=== PATIENT | male | born 1960 | race Caucasian/White ===

== ENCOUNTER 2023-05-11 21:15 | Emergency (ER) | payer MEDICARE, OTHER ==
[2023-05-11 21:27] VITALS: TEMP 98.5
--- NOTE | 2023-05-11 22:26 | ED ---
Male Urogenital HPI - General Chief complaint: Urogenital Stated complaint: Catheter Malfunction Time Seen by Provider: 05/11/23 21:17 Source: patient, EMS Mode of arrival: EMS Limitations: language barrier, altered mental status - History of Present Illness Initial comments: This patient is a 63-year-old man sent from shelter to evaluate for hemat uria. He reportedly had a catheter placed which was not returning much urine but turned blood. On arrival here, the patient did have urge to urinate, before arriving in the room and reportedly was able to voluntarily past urine. When I review the patient, he is denying abdominal pain he states that he feels he doesn't to have a catheter. The patient however having fever. No back pain. MD Complaint: other -: hour(s) Location: penis Radiation: none Severity: mild Consistency: now resolved Improves with: none Worsens with: none Reports: blood in urine - Related Data Allergies Allergy/AdvReac Type Severity Reaction Status Date / Time No Known Allergies Allergy Verified 05/11/23 21:26 Review of Systems ROS Statement: Those systems with pertinent positive or pertinent negative responses have been documented in the HPI. ROS Other: All systems not noted in ROS Statement are negative. Constitutional: Denies: fever Respiratory: Denies: dyspnea Cardiovascular: Denies: chest pain Gastrointestinal: Denies: abdominal pain Genitourinary: Reports: hematuria. Denies: urgency, dysuria, testicular pain Musculoskeletal: Denies: back pain Past Medical History Past Medical History: CVA/TIA, Dementia, Diabetes Mellitus, Hyperlipidemia, Hypertension, Renal Disease Additional Past Surgical History / Comment(s): renal failure Past Psychological History: Anxiety, Depression Past Alcohol Use History: Abuse General Exam Limitations: language barrier, altered mental status General appearance: alert, in no apparent distress Head exam: Present: atraumatic, normocephalic Eye exam: Present: normal appearance Respiratory exam: Present: normal lung sounds bilaterally. Absent: respiratory distress, wheezes, rales, rhonchi, stridor Cardiovascular Exam: Present: regular rate, normal rhythm, normal heart sounds. Absent: systolic murmur, diastolic murmur, rubs, gallop GI/Abdominal exam: Present: soft. Absent: distended, tenderness, guarding, rebound, mass Skin exam: Present: warm, dry, intact, normal color. Absent: rash Course Vital Signs 05/11/23 05/11/23 05/11/23 21:17 21:26 21:49 Temperature 98.5 F Pulse Rate 79 65 Pulse Rate [ 80 Interlocking Pavement Installer ] Respiratory 20 16 Rate Blood Pressure 166/105 140/86 O2 Sat by Pulse 97 98 Oximetry 05/11/23 22:26 Temperature Pulse Rate 74 Pulse Rate [ Interlocking Pavement Installer ] Respiratory 20 Rate Blood Pressure 160/100 O2 Sat by Pulse 98 Oximetry Medical Decision Making - Medical Decision Making Patient's 63-year-old man sent in with concerns about area. The patient wasurinate prior to my evaluation. His postvoid residual was checked and was 70 mL. I will going to replace the catheter, but the patient states that he deftly does not want this. At this point no indication for Morton catheter. Patient stable to return to shelter for further care Was pt. sent in by a medical professional or institution (, PA, LANGUAGE INSTRUCTOR, urgent care, hospital, or shelter...) When possible be specific @ -Patient sent from shelter Did you speak to anyone other than the patient for history (EMS, parent, family, police, friend...)? What history was obtained from this source @ -[No] Did you review nursing and triage notes (agree or disagree)? Why? @ -[I reviewed and agree with nursing and triage notes] Were old charts reviewed (outside hosp., previous admission, EMS record, old EKG, old radiological studies, urgent care reports/EKG's, shelter records)? Report findings @ -[No old charts were reviewed] Differential Diagnosis (chest pain, altered mental status, abdominal pain women, abdominal pain men, vaginal bleeding, weakness, fever, dyspnea, syncope, headache, dizziness, GI bleed, back pain, seizure, CVA, palpatations, mental health, musculoskeletal)? @ -[not applicable] EKG interpreted by me (3pts min.). @ -[As above] X-rays interpreted by me (1pt min.). @ -[None done] CT interpreted by me (1pt min.). @ -[None done] U/S interpreted by me (1pt. min.). @ -[None done] What testing was considered but not performed or refused? (CT, X-rays, U/S, labs)? Why? @ -[None] What meds were considered but not given or refused? Why? @ -[None] Did you discuss the management of the patient with other professionals (professionals i.e. , PA, LANGUAGE INSTRUCTOR, lab, RT, psych nurse, social media community manager, tar distillation supervisor, teacher, community reinvestment act officer, case preparer and liner)? Give summary @ -[No] Was smoking cessation discussed for >3mins.? @ -[No] Was critical care preformed (if so, how long)? @ -[No] Were there social determinants of health that impacted care today? How? (Homelessness, low income, unemployed, alcoholism, drug addiction, transportation, low edu. Level, literacy, decrease access to med. care, [place] [facility], rehab)? @ -[No] Was there de-escalation of care discussed even if they declined (Discuss DNR or withdrawal of care, Hospice)? DNR status @ -[No] What co-morbidities impacted this encounter? (DM, HTN, Smoking, COPD, CAD, Cancer, CVA, ARF, Chemo, Hep., AIDS, mental health diagnosis, sleep apnea, morbid obesity)? @ -[None] Was patient admitted / discharged? Hospital course, mention meds given and route, prescriptions, significant lab abnormalities, going to OR and other pertinent info. @ -[Patient is 63-year-old man sent from shelter for Morton catheter malfunction. The patient was able to pass urine here without the catheter. Postvoid residual does not show evidence of retention. The patient here is refusing replacement of the catheter. At this point we'll have patient follow- up to ensure that he continues to pass urine without needing further intervention. On nursing staff did call the long-term care facility staff and discuss details Undiagnosed new problem with uncertain prognosis? @ -[No] Drug Therapy requiring intensive monitoring for toxicity (Heparin, Nitro, Insulin, Cardizem)? @ -[No] Were any procedures done? @ -[No] Diagnosis/symptom? @ -[Morton catheter malfunction Acute, or Chronic, or Acute on Chronic? @ -[Acute Uncomplicated (without systemic symptoms) or Complicated (systemic symptoms)? @ -[Uncomplicated Side effects of treatment? @ -[No] Exacerbation, Progression, or Severe Exacerbation? @ -[No] Poses a threat to life or bodily function? How? (Chest pain, [place], [place], pneumonia, PE, COPD, DKA, ARF, appy, cholecystitis, CVA, Diverticulitis, Homicidal, Suicidal, threat to staff... and all critical care pts) @ -[No] Disposition Clinical Impression: Malfunction of Morton catheter Disposition: HOME SELF-CARE Condition: Good Instructions (If sedation given, give patient instructions): Hematuria (ED) Is patient prescribed a controlled substance at d/c from ED?: No Referrals: Kvng Daly DO [Primary Care Provider] - 1-2 days
[2023-05-11 22:44] VITALS: BP 160/100; PULSE 74; RESP 20
== END 2023-05-11 23:38 | disposition home or self-care (01) ==
LOC: EC 21:15
DX: T83.091A Other mechanical complication of indwelling urethral catheter, initial encounter (principal); E11.9 Type 2 diabetes mellitus without complications; I10 Essential (primary) hypertension; Y84.6 Urinary catheterization as the cause of abnormal reaction of the patient, or of later complication, without mention of misadventure at the time of the procedure
CPT/HCPCS: 99284

== ENCOUNTER 2023-09-07 06:58 | Day surgery (SDC) | payer MEDICARE, OTHER ==
[~2023-09-07 06:58] MED LIST: ACETAMINOPHEN TAB 500 MG TAB PO PRN; DEXAMETHASONE SOD PHOSPHATE 4 MG/ML 1 ML VIAL IV ONE; HEPARIN SODIUM,PORCINE/PF 5,000 UNIT/0.5 ML SYRINGE SQ PRN; LACTATED RINGERS 1,000 ML IV SCH; ONDANSETRON 4 MG/2 ML VIAL IVP ONE
[2023-09-07] MEDS ORDERED: HYDROmorphone 0.5 MG/0.5 ML SYRINGE IVP PRN (07:00)
[2023-09-07] MEDS ORDERED: MIDAZOLAM 2 MG/2 ML VIAL IV PRN (07:00)
--- NOTE | 2023-09-07 07:25 | P.GSHP ---
History of Present Illness H&P Date: 09/07/23 Chief Complaint: Incarcerated right inguinal hernia 63-year-old male seen in the office in May. Patient from a senior care. Has had pain apparently it is incarcerated inguinal hernia site. Hernia is getting larger. 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, colostomy, anemia, metabolic encephalopathy, delirium,neuromuscular dysfunction of bladder- IDC, protein calorie malnutrition, condyloma latum, aphasia but can get point across, mood swings, healing coccyx wound - no other skin breakdown at this time History of Any Multi-Drug Resistant Organisms: None Reported Past Surgical History: Bowel Resection Additional Past Surgical History / Comment(s): colostomy Past Anesthesia/Blood Transfusion Reactions: No Reported Reaction Additional Past Anesthesia/Blood Transfusion Reaction / Comment(s): staff unsure of any previous problems or surgeries Smoking Status: Unknown if ever smoked Medications and Allergies Home Medications Medication Instructions Recorded Confirmed Type ALPRAZolam [Xanax] 0.25 mg PO Q12H PRN 09/04/23 09/04/23 History Aspirin 81 mg PO DAILY 09/04/23 09/04/23 History Atorvastatin Calcium 20 mg PO HS 09/04/23 09/04/23 History Famotidine 20 mg PO HS 09/04/23 09/04/23 History Ferrous Sulfate [Iron] 325 mg PO BID 09/04/23 09/04/23 History Magnesium Oxide [Mag-Ox] 400 mg PO BID 09/04/23 09/04/23 History Melatonin 3 mg PO HS 09/04/23 09/04/23 History Midodrine HCl [ProAmantine] 2.5 mg PO TID 09/04/23 09/04/23 History Sertraline HCl [Zoloft] 50 mg PO DAILY 09/04/23 09/04/23 History levETIRAcetam [Keppra] 500 mg PO Q12HR 09/04/23 09/04/23 History oxyCODONE HCL [OxyIR] 5 mg PO Q8H PRN 09/04/23 09/04/23 History Allergies Allergy/AdvReac Type Severity Reaction Status Date / Time No Known Allergies Allergy Verified 09/04/23 10:22 Surgical - Exam Physical exam: General: Well-developed, well-nourished HEENT: Normocephalic, sclerae nonicteric Abdomen: Nontender, nondistended, large incarcerated right inguinal hernia Extremities: No edema Neuro: Alert and oriented Assessment and Plan (1) Right inguinal hernia Narrative/Plan: 3-year-old male with incarcerated right inguinal hernia. Spoke with the patient's niece following his office evaluation given his increasing symptoms incision was made to proceed with repair. We'll proceed with open right inguinal hernia repair with mesh at this time. Risks of bleeding, infection, recurrence, bladder and bowel injury, numbness, nerve injury were discussed with the patient. The patient understands and wishes to proceed. Current Visit: Yes Status: Acute Code(s): K40.90 - UNIL INGUINAL HERNIA, W/O OBST OR GANGR, NOT SPCF RECUR SNOMED Code(s): 193754408
[2023-09-07 08:17] LABS: Glucose,Whole Blood 107 mg/dL (70-110)
[2023-09-07 08:28] LABS: Basophils % (A) 0 %; Eosinophils # (A) 0.2 k/uL (0-0.7); Eosinophils % (A) 3 %; HCT 45.5 % (39.0-53.0); HGB 14.7 gm/dL (13.0-17.5); Lymphocytes # (A) 1.3 k/uL (1.0-4.8); Lymphocytes % (A) 22 %; MCH 30.4 pg (25.0-35.0); MCHC 32.2 g/dL (31.0-37.0); MCV 94.3 fL (80.0-100.0); Mean Platelet Volume 8.5; Monocytes # (A) 0.4 k/uL (0-1.0); Monocytes % (A) 7 %; Neutrophils # (A) 3.9 k/uL (1.3-7.7); Neutrophils % (A) 67 %; Platelet Count 180 k/uL (150-450); RBC 4.82 m/uL (4.30-5.90); RDW 13.3 % (11.5-15.5); WBC 5.8 k/uL (3.8-10.6)
[2023-09-07] MEDS ORDERED: ROCURONIUM 10 MG/ML (5 ML VIAL) IV ONE (08:46)
[2023-09-07] MEDS ORDERED: PROPOFOL 10 MG/ML 20 ML VIAL IV ONE (08:46)
[2023-09-07] MEDS ORDERED: GLYCOPYRROLATE 0.2 MG/ML 2 ML VIAL ONE (08:46)
[2023-09-07] MEDS ORDERED: NEOSTIGMINE 1 MG/ML 10 ML VIAL ONE (08:46)
[2023-09-07] MEDS ORDERED: PHENYLEPHRINE 10 MG/ML 5 ML VIAL ONE (08:46)
[2023-09-07] MEDS ORDERED: KETOROLAC 15 MG/ML 1 ML VIAL ONE (08:46)
[2023-09-07] MEDS ORDERED: ePHEDrine 50 MG/ML 1 ML VIAL ONE (08:46)
[2023-09-07] MEDS ORDERED: LIDOCAINE 1% INJ 10MG/ML (20 ML MDV) ONE (08:46)
[2023-09-07] MEDS ORDERED: fentaNYL (PF) 50 MCG/ML 2 ML AMP ONE (08:46)
[2023-09-07] MEDS ORDERED: BUPIVACAINE (PF) 0.5% 30 ML VIAL SQ ONE (09:27)
--- NOTE | 2023-09-07 10:40 | P.OP ---
Date of Procedure: 09/07/23 Procedure(s) Performed: PREOPERATIVE DIAGNOSIS: Incarcerated right inguinal hernia POSTOPERATIVE DIAGNOSIS: Large incarcerated direct right inguinal hernia PROCEDURE: Open repair right direct inguinal hernia with mesh SURGEON: Dr. Hammond ANESTHESIA: General OPERATIVE PROCEDURE DETAILS: Patient was placed in the operating table in the supine position and placed under general anesthesia. An oblique incision was made in the right groin. Dissection down through the subcutaneous tissues took place using electrocautery. The external oblique fascia was incised using a scalpel. This opening was lengthened using the Metzenbaum scissors. The spermatic cord was encircled with a Carol drain. The spermatic cord structures were identified and preserved. Careful dissection revealed a large direct hernia sac. This was opened and contents were inspected. The bladder was not present within the direct hernia protrusion. The patient had small bowel present here that was able to be reduced easily. Given the size of this large direct hernia sac I decided to excise the majority of it. This defect in the direct space was then closed transversely using a running locking #2 Ethibond stitch. Care was taken to avoid injury to the bladder bowel or inferior epigastric vasculature. The hernia sac was sent to pathology. Following that a 3" x 6" Prolene mesh was cut to fit on the exposed fascia. This was sutured to the pubic tubercle the folding edge of the inguinal ligament and the conjoined tendon using interrupted 0 Vicryl sutures. A slit was created in the mesh and the mesh was wrapped around the spermatic cord and sutured back to itself. The external oblique was then reapproximated using a running 2-0 Vicryl suture. The subcutaneous tissues were reapproximated using a 3-0 Vicryl sutures. The skin was closed using 4-0 Monocryl sutures. Skin glue and sterile dressings were then applied. TYPE OF MESH USED: Flat Prolene mesh LOCATION OF MESH: [place] FIXATION: O vicryl PREOPERATIVE DISCUSSION ON SMOKING CESSASTION: Yes PREOPERATIVE DISCUSSION ON MORBID OBESITY: Yes PREOPERATIVE DISCUSSION ON APPROPRIATE USE OF NARCOTIC USE: Yes PREOPERATIVE EDUCATION: Multi Modal, Smoking Cessation and Weight Loss with BMI over 35. DISPOSITION: Stable to recovery room
[2023-09-07 10:52] VITALS: TEMP 97
[2023-09-07 10:54] LABS: Glucose,Whole Blood 168 mg/dL (70-110)
[2023-09-07] MEDS ORDERED: ACETAMINOPHEN TAB 325 MG TAB PO SCH (12:00)
[2023-09-07 12:06] VITALS: BP 136/73; PULSE 69; RESP 20
[2023-09-07] MEDS ORDERED: IBUPROFEN 600 MG TAB PO SCH (13:45)
== END 2023-09-07 13:21 ==
LOC: OR 06:58 → EEVIPCON 07:30 → OR 13:21
PROVIDERS: ATTEND Surgery
DX: K40.30 Unilateral inguinal hernia, with obstruction, without gangrene, not specified as recurrent (principal); E11.9 Type 2 diabetes mellitus without complications; E78.5 Hyperlipidemia, unspecified; I10 Essential (primary) hypertension; I63.9 Cerebral infarction, unspecified; F03.90 Unspecified dementia, unspecified severity, without behavioral disturbance, psychotic disturbance, mood disturbance, and anxiety; K21.9 Gastro-esophageal reflux disease without esophagitis; Z79.2 Long term (current) use of antibiotics; Z79.82 Long term (current) use of aspirin; Z98.890 Other specified postprocedural states; Z79.899 Other long term (current) drug therapy
CPT/HCPCS: 85025; 88302; 49507; C1781; J1100; J2710; J0690; J2405; J2001; J3010; J1885; J2704; J1644; J2371; J0665